=== PATIENT | female | born 1980 | race Caucasian/White ===

== ENCOUNTER 2020-12-11 13:44 | Emergency (ER) | payer BC ==
[2020-12-11 14:46] LABS: HEMOGLOBIN 13.9 gm/dl (12.3-15.3); RED BLOOD COUNT 4.47 M/UL (4.00-5.10); WHITE BLOOD COUNT 7.1 K/UL (4.5-11.0)
[2020-12-11 15:07] LABS: BUN/CREATININE RATIO 20 (0-10)
[2020-12-11] MEDS ORDERED: ONDANSETRON ODT4 MG SL (17:22)
[2020-12-11] MEDS ORDERED: MACROBID 100 M100 MG PO (17:22)
[2020-12-11] MEDS ORDERED: TORADOL 10 MG T10 MG PO (17:22)
== END 2020-12-11 17:33 | disposition home or self-care (01) ==
LOC: ER1 13:44
PROVIDERS: Physician Assistant
DX: R10.9 Unspecified abdominal pain (principal); R39.15 Urgency of urination; I10 Essential (primary) hypertension; Z88.0 Allergy status to penicillin; Z88.1 Allergy status to other antibiotic agents; Z88.2 Allergy status to sulfonamides
CPT/HCPCS: 80053; 81001; 84703; 85025; 87086; 96374; 96375; 99284; J1885; J2270; J2405; J7030

== ENCOUNTER 2020-12-16 16:12 | Emergency (ER) | payer BC ==
[~2020-12-16 16:12] MED LIST: MACROBID 100 M100 MG PO; ONDANSETRON ODT4 MG SL; TORADOL 10 MG T10 MG PO
[2020-12-16 17:34] LABS: HEMOGLOBIN 15.3 gm/dl (12.3-15.3); RED BLOOD COUNT 4.92 M/UL (4.00-5.10); WHITE BLOOD COUNT 10.8 K/UL (4.5-11.0)
[2020-12-16 18:00] LABS: BUN/CREATININE RATIO 28 (0-10)
== END 2020-12-16 21:51 | disposition home or self-care (01) ==
LOC: ER1 16:12
PROVIDERS: Physician Assistant
DX: N83.201 Unspecified ovarian cyst, right side (principal)
CPT/HCPCS: 76830; 80053; 81001; 83690; 84703; 85025; 96374; 96375; 99284; J2270; J2405; Q9967

== ENCOUNTER 2020-12-20 12:49 | Emergency (ER) | payer BC ==
[2020-12-20 13:57] LABS: RED BLOOD COUNT 4.07 M/UL (4.00-5.10); WHITE BLOOD COUNT 6.8 K/UL (4.5-11.0)
[2020-12-20 14:10] LABS: HEMOGLOBIN 12.5 gm/dl (12.3-15.3)
[2020-12-20 14:18] LABS: BUN/CREATININE RATIO 19 (0-10)
[2020-12-20] MEDS ORDERED: PROVERA10 MG PO (17:30)
[2020-12-20] MEDS ORDERED: HYDROCODON-ACE1 EAC4 PO (17:30)
== END 2020-12-20 18:17 | disposition home or self-care (01) ==
LOC: ER1 12:49
PROVIDERS: Physician Assistant
DX: N93.9 Abnormal uterine and vaginal bleeding, unspecified (principal)
CPT/HCPCS: 80053; 81001; 83690; 84703; 85025; 99284

== ENCOUNTER 2021-01-14 16:25 | Emergency (ER) | payer BC ==
[~2021-01-14 16:25] MED LIST changes: +HYDROCODON-ACE1 EAC4 PO; +PROVERA10 MG PO
[2021-01-14 17:33] LABS: HEMOGLOBIN 12.5 gm/dl (12.3-15.3); RED BLOOD COUNT 4.09 M/UL (4.00-5.10); WHITE BLOOD COUNT 6.6 K/UL (4.5-11.0)
[2021-01-14 18:02] LABS: BUN/CREATININE RATIO 19 (0-10)
[2021-01-14] MEDS ORDERED: LEVOFLOXACIN250 MG PO (20:08)
== END 2021-01-14 20:20 | disposition home or self-care (01) ==
LOC: ER1 16:25
PROVIDERS: Emergency Medicine
DX: N83.202 Unspecified ovarian cyst, left side (principal); N83.8 Other noninflammatory disorders of ovary, fallopian tube and broad ligament
CPT/HCPCS: 76830; 80053; 81001; 83690; 84703; 85025; 87077; 87086; 87186; 96374; 96375; 99284; J2270; J2405; Q9967

== ENCOUNTER → 2021-01-21 | Day surgery (SDC) | payer BC ==
[~2021-01-21] MED LIST changes: +LEVOFLOXACIN250 MG PO
[2021-01-21 06:45] LABS: HEMOGLOBIN 12.4 gm/dl (12.3-15.3); RED BLOOD COUNT 4.05 M/UL (4.00-5.10); WHITE BLOOD COUNT 4.1 K/UL (4.5-11.0)
== END | disposition home or self-care (01) ==
LOC: OR 05:23
PROVIDERS: Obstetrics & Gynecology
DX: N80.3 Endometriosis of pelvic peritoneum (principal); K40.90 Unilateral inguinal hernia, without obstruction or gangrene, not specified as recurrent; N83.202 Unspecified ovarian cyst, left side; N83.201 Unspecified ovarian cyst, right side; Z88.1 Allergy status to other antibiotic agents; Z88.0 Allergy status to penicillin; Z88.2 Allergy status to sulfonamides; Z88.8 Allergy status to other drugs, medicaments and biological substances; Z80.8 Family history of malignant neoplasm of other organs or systems
CPT/HCPCS: 81001; 84702; 85025; 93005; C1769; J1100; J1170; J1580; J1885; J2001; J2250; J2405; J2704; J2710; J2795; J3010; J7120

== ENCOUNTER → 2021-03-12 | Day surgery (SDC) | payer BC ==
[~2021-03-12] MED LIST changes: +IBUPROFEN600 MG PO; +PERCOCET 5-3251 EACH PO
[2021-03-12 08:10] LABS: HEMOGLOBIN 12.1 gm/dl (12.3-15.3); RED BLOOD COUNT 4.05 M/UL (4.00-5.10); WHITE BLOOD COUNT 4.3 K/UL (4.5-11.0)
== END | disposition home or self-care (01) ==
LOC: OR 07:12
PROVIDERS: Obstetrics & Gynecology
DX: N80.1 Endometriosis of ovary (principal); N80.0 Endometriosis of uterus; N72 Inflammatory disease of cervix uteri; N87.9 Dysplasia of cervix uteri, unspecified; K40.90 Unilateral inguinal hernia, without obstruction or gangrene, not specified as recurrent; Z88.0 Allergy status to penicillin; Z88.2 Allergy status to sulfonamides; Z88.1 Allergy status to other antibiotic agents; Z20.822 Contact with and (suspected) exposure to COVID-19
CPT/HCPCS: 36415; 81001; 84702; 85025; 93005; C1769; J1100; J1170; J1580; J1885; J2250; J2405; J2550; J2704; J2795; J3010; J7120; U0002